=== PATIENT | female | born 1940 | race Caucasian/White ===

== ENCOUNTER 2022-06-02 19:41 | Inpatient (IN) ==
[2022-06-02] MEDS ORDERED: NOREPINEPHRINE 4 MG/4 ML VIAL IV ONE (19:51)
[2022-06-02] MEDS: NOREPINEPHRINE DRIP 8 MG/250 ML PREMIX IV PRN (20:09)
[2022-06-02] MEDS ORDERED: SODIUM CHLORIDE 0.9% 1,000 ML IV SCH (20:10)
[2022-06-02 20:48] LABS: Basophils # 0.1 10*3/uL (0.0-0.2); Basophils % 0.3 % (0.0-0.8); Hematocrit 41.8 VOL% (35.7-47.0); Hemoglobin 13.2 GM/DL (12.0-16.0); Immature Granulocytes Absolute 3.34 #; Lymphocytes # 1.3 10*3/uL (1.4-4.0); Lymphocytes % 3.7 % (21.3-54.2); Mean Corpuscular HGB Conc 31.6 GM/DL (32-36); Mean Corpuscular Volume 90.3 FL (87-102); Mean Platelet Volume 11.3 FL (9.6-12.0); Monocytes # 1.6 10*3/uL (0.11-0.8); Monocytes % 4.8 % (1.7-12.7); Neutrophils % 81.2 % (38.7-73.9); Platelet Count 93 T/CUMM (130-400); Red Blood Count 4.63 MC/CUMM (3.8-5.5); Red Cell Distribution Width 15.1 % (9.3-17.3); White Blood Count 33.4 T/CUMM (4-12)
[2022-06-02] MEDS ORDERED: ALBUTEROL 2.5 MG/3 ML NEB RESP TX PRN (21:00)
[2022-06-02] MEDS ORDERED: MORPHINE 2 MG/1 ML SYRINGE IV PRN (21:01)
[2022-06-02] MEDS ORDERED: ONDANSETRON 4 MG/2 ML VIAL IV PRN (21:01)
[2022-06-02 21:16] LABS: Band Neutrophils 15 % (0-10); Lymphocytes 4 % (20-55); Metamyelocytes 5 %; Total Cells Counted 100
[2022-06-02 21:19] LABS: Platelet Estimate Decreased
[2022-06-02 21:27] LABS: Arterial Base Excess iSTAT -5 MMOL/L (-2.5-2.5); Arterial Bicarbonate iSTAT 19.2 MMOL/L (20-26); Arterial O2 Saturation iSTAT 96 % (95-100); Arterial PCO2 iSTAT 32 MM HG (35-48); Arterial PO2 iSTAT 80 MM HG (80-95); Arterial Total CO2 iSTAT 20 MMO/L (23-27); Arterial pH iSTAT 7.389 (7.35-7.45)
[2022-06-02 21:30] LABS: Alanine Aminotransferase 205 U/L (13-56); Albumin 2.6 G/DL (3.4-5.0); Alkaline Phosphatase 188 U/L (45-117); Amylase 94 U/L (25-115); Aspartate Amino Transferase 249 U/L (0-37); Blood Urea Nitrogen 49 MG/DL (7-18); Carbon Dioxide 22 MMOL/L (21-32); Chloride 106 MMOL/L (98-107); Glucose 102 MG/DL (74-106); Osmolality,Calculated 293.3 MOS/KG (273-304); Potassium 4.3 MMOL/L (3.5-5.1); Sodium 141 MMOL/L (136-145); Total Protein 5.4 G/DL (6.4-8.2)
[2022-06-02] MEDS ORDERED: VANCOMYCIN INJ 1,000 MG in SODIUM CHLORIDE 0.9% 250 ML IV PRN (21:30)
[2022-06-02 21:45] VITALS: BP 106/68
[2022-06-02] MEDS ORDERED: PANTOPRAZOLE 40 MG VIAL IV SCH (22:00)
[2022-06-02 22:59] LABS: Urine Appearance Clear (Clear); Urine Color Yellow (Yellow)
[2022-06-02 23:00] LABS: Bilirubin,Urine Small mg/dL (Negative); Blood, Urine Moderate mg/dL (Negative); Glucose,Urine (UA) Negative (Negative); Ketones,Urine Trace mg/dL (Negative); Nitrite,Urine Negative (Negative); Protein,Urine 100 mg/dL (Negative); Urine Specific Gravity 1.025 (1.001-1.035); Urine Urobilinogen 0.2 eU/dL (<2.0); Urine pH 5.5 (4.5-8.0)
[2022-06-02] MEDS ORDERED: PIPERACILLIN/TAZOBACTAM 3,375 MG in SODIUM CHLORIDE 0.9% 100 ML IV SCH (23:00)
[2022-06-02] MEDS: LACTATED RINGERS 1,000 ML IV SCH (23:21)
[2022-06-02] MEDS: MEROPENEM 500 MG in SODIUM CHLORIDE 0.9% 100 ML IV SCH (23:21)
[2022-06-03 04:23] LABS: Basophils # 0.2 10*3/uL (0.0-0.2); Basophils % 0.5 % (0.0-0.8); Eosinophils % 0.1 % (0.00-10.9); Hematocrit 40.4 VOL% (35.7-47.0); Immature Granulocytes % 13.9 %; Immature Granulocytes Absolute 5.12 #; Lymphocytes # 1.4 10*3/uL (1.4-4.0); Lymphocytes % 3.8 % (21.3-54.2); Mean Corpuscular HGB Conc 32.2 GM/DL (32-36); Mean Corpuscular Volume 89.2 FL (87-102); Mean Platelet Volume 11.7 FL (9.6-12.0); Monocytes % 5.5 % (1.7-12.7); Neutrophils % 76.2 % (38.7-73.9); Platelet Count 86 T/CUMM (130-400); Red Blood Count 4.53 MC/CUMM (3.8-5.5); Red Cell Distribution Width 15.1 % (9.3-17.3); White Blood Count 36.9 T/CUMM (4-12)
[2022-06-03 04:44] LABS: Albumin 2.4 G/DL (3.4-5.0); Osmolality,Calculated 291.5 MOS/KG (273-304); Potassium 4.2 MMOL/L (3.5-5.1); Total Protein 5.6 G/DL (6.4-8.2)
[2022-06-03 04:50] LABS: Band Neutrophils 4 % (0-10); Lymphocytes 7 % (20-55); Platelet Estimate Decreased; Total Cells Counted 100
[2022-06-03 04:51] LABS: Burr Cells Slight
[2022-06-03] MEDS: LACTATED RINGERS 1,000 ML IV SCH ×3 (06:00→21:50)
[2022-06-03] MEDS ORDERED: VANCOMYCIN INJ 1,000 MG in SODIUM CHLORIDE 0.9% 250 ML IV ONE (06:30)
[2022-06-03] MEDS: INSULIN REGULAR 100 UNIT/ML SUBCUT SCH ×4 (08:22→21:14)
[2022-06-03 08:34] LABS: INR 1.2; PT Patient Result 13.5 SECS (10.1-12.1)
[2022-06-03] MEDS ORDERED: INDOMETHACIN SUPP 50 MG SUPP RECTAL ONE (08:49)
[2022-06-03] MEDS: FAMOTIDINE 20 MG/2 ML VIAL IV SCH (09:00)
[2022-06-03] MEDS: MEROPENEM 500 MG in SODIUM CHLORIDE 0.9% 100 ML IV SCH ×2 (11:15→22:14)
[2022-06-03] MEDS ORDERED: fentaNYL 100 MCG/2 ML VIAL ONE (12:56)
[2022-06-03] MEDS: NOREPINEPHRINE DRIP 8 MG/250 ML PREMIX IV PRN (13:20)
[2022-06-03] MEDS ORDERED: ETOMIDATE 40 MG/20 ML VIAL IV ONE (13:31)
[2022-06-03] MEDS ORDERED: LIDOCAINE 2% 5 ML VIAL ONE (13:31)
[2022-06-03] MEDS ORDERED: propofoL 200 MG/20 ML VIAL IV ONE (13:31)
[2022-06-03] MEDS ORDERED: ePHEDrine 50 MG/ML VIAL ONE (13:58)
[2022-06-03] MEDS ORDERED: SUCCINYLCHOLINE 200 MG/10 ML VIAL ONE (14:54)
[2022-06-03] MEDS ORDERED: ROCURONIUM 50 MG/5 ML VIAL IV ONE (14:54)
[2022-06-03] MEDS ORDERED: SEVOFLURANE 1 UNIT/15 MINUTE INH ONE (14:54)
[2022-06-03] MEDS: SODIUM CHLORIDE 0.9% 1,000 ML IV SCH (19:06)
[2022-06-04] MEDS: LACTATED RINGERS 1,000 ML IV SCH ×2 (04:38→13:45)
[2022-06-04 05:06] LABS: Basophils # 0.1 10*3/uL (0.0-0.2); Basophils % 0.6 % (0.0-0.8); Eosinophils # 0.9 10*3/uL (0.0-0.87); Hemoglobin 12.4 GM/DL (12.0-16.0); Immature Granulocytes % 0.5 %; Lymphocytes % 9.4 % (21.3-54.2); Mean Corpuscular HGB Conc 29.5 GM/DL (32-36); Mean Corpuscular Volume 95.7 FL (87-102); Monocytes % 4.8 % (1.7-12.7); Neutrophils % 80.7 % (38.7-73.9); Platelet Count 61 T/CUMM (130-400); Red Cell Distribution Width 15.5 % (9.3-17.3); White Blood Count 21.3 T/CUMM (4-12)
[2022-06-04 05:07] LABS: Hematocrit 42.1 VOL% (35.7-47.0)
[2022-06-04 05:19] LABS: Albumin 1.7 G/DL (3.4-5.0); Bilirubin,Total 2.5 MG/DL (0.20-1.00); Calcium 7.9 MG/DL (8.5-10.1); Osmolality,Calculated 292.5 MOS/KG (273-304); Potassium 3.9 MMOL/L (3.5-5.1); Total Protein 4.8 G/DL (6.4-8.2)
[2022-06-04 06:36] LABS: Band Neutrophils 2 % (0-10); Eosinophils 1 % (0-10); Lymphocytes 7 % (20-55); Total Cells Counted 100
[2022-06-04 06:37] LABS: Microcytosis Slight; Platelet Estimate Decreased; Target Cells Slight
[2022-06-04] MEDS: INSULIN REGULAR 100 UNIT/ML SUBCUT SCH ×4 (07:51→20:00)
[2022-06-04] MEDS: FAMOTIDINE 20 MG/2 ML VIAL IV SCH (08:59)
[2022-06-04] MEDS ORDERED: INFLUENZA VIRUS VACCINE 0.5 ML SYRINGE IM ONE (09:00)
[2022-06-04] MEDS: SODIUM CHLORIDE 0.9% 1,000 ML IV SCH (09:24)
[2022-06-04] MEDS: MEROPENEM 500 MG in SODIUM CHLORIDE 0.9% 100 ML IV SCH ×2 (11:18→22:34)
[2022-06-04] MEDS ORDERED: LACTATED RINGERS 500 ML IV ONE (14:26)
[2022-06-04] MEDS: SODIUM BICARB INJ 100 MEQ in DEXTROSE 5% 1,000 ML IV SCH ×2 (16:20→23:55)
[2022-06-05 06:52] LABS: Basophils # 0.1 10*3/uL (0.0-0.2); Basophils % 0.6 % (0.0-0.8); Eosinophils # 0.9 10*3/uL (0.0-0.87); Eosinophils % 8.9 % (0.00-10.9); Hemoglobin 12.2 GM/DL (12.0-16.0); Immature Granulocytes % 1.1 %; Immature Granulocytes Absolute 0.11 #; Lymphocytes # 1.5 10*3/uL (1.4-4.0); Lymphocytes % 15.8 % (21.3-54.2); Mean Corpuscular Volume 87.1 FL (87-102); Mean Platelet Volume 11.9 FL (9.6-12.0); Monocytes # 0.6 10*3/uL (0.11-0.8); Monocytes % 6.5 % (1.7-12.7); Neutrophils % 67.1 % (38.7-73.9); Platelet Count 57 T/CUMM (130-400); Red Blood Count 4.25 MC/CUMM (3.8-5.5); White Blood Count 9.8 T/CUMM (4-12)
[2022-06-05 07:11] LABS: Albumin 1.7 G/DL (3.4-5.0); Bilirubin,Total 2.1 MG/DL (0.20-1.00); Calcium 8.3 MG/DL (8.5-10.1); Osmolality,Calculated 300.8 MOS/KG (273-304); Potassium 3.7 MMOL/L (3.5-5.1); Total Protein 4.7 G/DL (6.4-8.2)
[2022-06-05] MEDS: INSULIN REGULAR 100 UNIT/ML SUBCUT SCH ×4 (07:12→21:07)
[2022-06-05 07:13] LABS: Anisocytosis Slight; Burr Cells 1+; Platelet Estimate Decreased
[2022-06-05] MEDS: SODIUM CHLORIDE 0.9% 1,000 ML IV SCH ×2 (07:49→18:31)
[2022-06-05] MEDS: FAMOTIDINE 20 MG/2 ML VIAL IV SCH (07:54)
[2022-06-05] MEDS: CITALOPRAM 20 MG TABLET PO SCH (08:04)
[2022-06-05] MEDS: MEROPENEM 500 MG in SODIUM CHLORIDE 0.9% 100 ML IV SCH ×2 (10:22→22:00)
[2022-06-06] MEDS: SODIUM CHLORIDE 0.9% 1,000 ML IV SCH ×2 (02:50→15:48)
[2022-06-06 06:46] LABS: Basophils # 0.1 10*3/uL (0.0-0.2); Basophils % 0.8 % (0.0-0.8); Eosinophils # 0.6 10*3/uL (0.0-0.87); Eosinophils % 9.3 % (0.00-10.9); Hematocrit 36.7 VOL% (35.7-47.0); Hemoglobin 11.6 GM/DL (12.0-16.0); Immature Granulocytes % 2.4 %; Immature Granulocytes Absolute 0.16 #; Lymphocytes # 1.4 10*3/uL (1.4-4.0); Lymphocytes % 20.5 % (21.3-54.2); Mean Corpuscular HGB Conc 31.6 GM/DL (32-36); Mean Corpuscular Volume 89.3 FL (87-102); Monocytes # 0.8 10*3/uL (0.11-0.8); Monocytes % 12.3 % (1.7-12.7); Neutrophils % 54.7 % (38.7-73.9); Platelet Count 51 T/CUMM (130-400); Red Blood Count 4.11 MC/CUMM (3.8-5.5); Red Cell Distribution Width 15.1 % (9.3-17.3); White Blood Count 6.6 T/CUMM (4-12)
[2022-06-06 07:09] LABS: Albumin 1.9 G/DL (3.4-5.0); Bilirubin,Total 1.6 MG/DL (0.20-1.00); Calcium 8.1 MG/DL (8.5-10.1); Osmolality,Calculated 301.7 MOS/KG (273-304); Potassium 3.7 MMOL/L (3.5-5.1); Total Protein 4.9 G/DL (6.4-8.2)
[2022-06-06 07:24] LABS: Anisocytosis 1+; Platelet Estimate Decreased
[2022-06-06] MEDS: INSULIN REGULAR 100 UNIT/ML SUBCUT SCH ×4 (07:36→20:22)
[2022-06-06] MEDS: FAMOTIDINE 20 MG/2 ML VIAL IV SCH (10:14)
[2022-06-06] MEDS: CITALOPRAM 20 MG TABLET PO SCH (10:15)
[2022-06-06] MEDS: MEROPENEM 500 MG in SODIUM CHLORIDE 0.9% 100 ML IV SCH (17:41)
[2022-06-07] MEDS: SODIUM CHLORIDE 0.9% 1,000 ML IV SCH (01:49)
[2022-06-07] MEDS: MEROPENEM 500 MG in SODIUM CHLORIDE 0.9% 100 ML IV SCH ×2 (05:17→17:07)
[2022-06-07 05:22] LABS: Basophils # 0.1 10*3/uL (0.0-0.2); Basophils % 0.7 % (0.0-0.8); Eosinophils # 0.6 10*3/uL (0.0-0.87); Eosinophils % 9.3 % (0.00-10.9); Hematocrit 35.8 VOL% (35.7-47.0); Hemoglobin 11.5 GM/DL (12.0-16.0); Immature Granulocytes % 4.6 %; Immature Granulocytes Absolute 0.31 #; Lymphocytes # 1.6 10*3/uL (1.4-4.0); Lymphocytes % 23.2 % (21.3-54.2); Mean Corpuscular HGB Conc 32.1 GM/DL (32-36); Mean Corpuscular Volume 88.8 FL (87-102); Mean Platelet Volume 11.9 FL (9.6-12.0); Monocytes % 14.3 % (1.7-12.7); Neutrophils % 47.9 % (38.7-73.9); Platelet Count 73 T/CUMM (130-400); Red Blood Count 4.03 MC/CUMM (3.8-5.5); Red Cell Distribution Width 15.1 % (9.3-17.3); White Blood Count 6.8 T/CUMM (4-12)
[2022-06-07 05:42] LABS: Albumin 1.8 G/DL (3.4-5.0); Bilirubin,Total 1.2 MG/DL (0.20-1.00); Osmolality,Calculated 305.4 MOS/KG (273-304); Potassium 3.4 MMOL/L (3.5-5.1); Total Protein 4.9 G/DL (6.4-8.2)
[2022-06-07 06:03] LABS: Platelet Estimate Decreased
[2022-06-07] MEDS ORDERED: MAGNESIUM SULF INJ 3 GM in SODIUM CHLORIDE 0.9% 100 ML IV ONE (07:30)
[2022-06-07] MEDS: CITALOPRAM 20 MG TABLET PO SCH (08:04)
[2022-06-07] MEDS: POTASSIUM CHLORIDE 20 MEQ TABLET PO PRN ×3 (08:04→17:08)
[2022-06-07] MEDS: FAMOTIDINE 20 MG/2 ML VIAL IV SCH (08:04)
[2022-06-07] MEDS: INSULIN REGULAR 100 UNIT/ML SUBCUT SCH ×4 (08:55→20:29)
[2022-06-07] MEDS: SODIUM CHLORIDE 0.45% 1,000 ML IV SCH (11:27)
[2022-06-08] MEDS: MEROPENEM 500 MG in SODIUM CHLORIDE 0.9% 100 ML IV SCH (05:15)
[2022-06-08 05:53] LABS: Basophils % 0.4 % (0.0-0.8); Eosinophils # 0.9 10*3/uL (0.0-0.87); Eosinophils % 9.7 % (0.00-10.9); Hematocrit 34.9 VOL% (35.7-47.0); Hemoglobin 11.3 GM/DL (12.0-16.0); Immature Granulocytes % 4.4 %; Lymphocytes # 2.1 10*3/uL (1.4-4.0); Lymphocytes % 23.5 % (21.3-54.2); Mean Corpuscular HGB Conc 32.4 GM/DL (32-36); Mean Platelet Volume 11.4 FL (9.6-12.0); Monocytes % 11.4 % (1.7-12.7); Neutrophils % 50.6 % (38.7-73.9); Platelet Count 103 T/CUMM (130-400); Red Blood Count 3.92 MC/CUMM (3.8-5.5); Red Cell Distribution Width 15.1 % (9.3-17.3)
[2022-06-08 06:20] LABS: Albumin 1.9 G/DL (3.4-5.0); Bilirubin,Total 1.2 MG/DL (0.20-1.00); Calcium 8.1 MG/DL (8.5-10.1); Osmolality,Calculated 294.7 MOS/KG (273-304); Total Protein 4.8 G/DL (6.4-8.2)
[2022-06-08] MEDS: INSULIN REGULAR 100 UNIT/ML SUBCUT SCH ×2 (09:31→11:38)
[2022-06-08] MEDS: CITALOPRAM 20 MG TABLET PO SCH (09:39)
[2022-06-08] MEDS: FAMOTIDINE 20 MG/2 ML VIAL IV SCH (09:39)
[2022-06-08] MEDS: SODIUM CHLORIDE 0.45% 1,000 ML IV SCH (11:40)
[2022-06-08] MEDS ORDERED: metroNIDAZOLE 500 MG TABLET PO SCH (15:00)
[2022-06-08] MEDS ORDERED: CEFUROXIME 500 MG TABLET PO SCH (21:00)
== END 2022-06-08 14:55 | disposition home health service (06) | DRG 871 ==
LOC: N.ED 19:41 → SUATTDRO 21:00 → N.EDINP 21:00 → N.CC 21:27
PROVIDERS: ADMIT Family Medicine; ATTEND Internal Medicine Geriatric Medicine
PROC: ERCPWSP (ICD-10-PCS; 2022-06-03 11:20)